=== PATIENT | female | born 1975 | race American Indian/Alaskan Native ===

== ENCOUNTER 2017-10-11 08:26 | Observation (INO) | payer BC ==
--- NOTE | 2017-10-05 11:32 | Anesthesia Consultation ---
Anesthesia Consult and Med Hx Date of service: 10/05/17 - Airway Anesthetic Teeth Evaluation: Good (got braces off in march. Perm retainer behind four front teeth) ROM Head & Neck: Adequate Mental/Hyoid Distance: Adequate Mallampati Class: Class I Intubation Access Assessment: Good - Pulmonary Exam CTA: Yes - Cardiac Exam Cardiac Exam: RRR - Pre-Operative Health Status ASA Pre-Surgery Classification: ASA2 Proposed Anesthetic Plan: General - Other Systems Hx Alcohol Use: Yes (occasional) - Additional Comments Anesthesia Medical History Comments: high cholest. no meds. migraines from stress. PONV after previous surgeries
[2017-10-05 12:15] LABS: Basophils # (Auto) 0.1 K/mm3 (0.0-0.1); Eosinophils # (Auto) 0.1 K/mm3 (0.0-0.4); Eosinophils % (Auto) 1.6 % (0.0-4.3); Hematocrit 39.7 % (30.3-42.9); Lymphocytes # (Auto) 1.8 K/mm3 (1.2-5.4); Lymphocytes % (Auto) 32.3 % (13.4-35.0); Mean Corpuscular HGB Conc 33 % (30-34); Mean Corpuscular Hemoglobin 29 pg (28-32); Mean Corpuscular Volume 90 fl (79-97); Monocytes # (Auto) 0.3 K/mm3 (0.0-0.8); Monocytes % (Auto) 5.7 % (0.0-7.3); Red Blood Count 4.42 M/mm3 (3.65-5.03); Red Cell Distribution Width 13.5 % (13.2-15.2)
[2017-10-05 12:28] LABS: Platelet Count 249 K/mm3 (140-440)
--- NOTE | 2017-10-09 17:21 | History and Physical Report ---
History of Present Illness Date of examination: 10/05/17 Date of admission: 10/11/17 Chief complaint: painful heavy periods History of present illness: Pt does c/o having heavy periods with passage of clots for the last 2 years. Denies any problems until this time. c/o low back pain with menses as welll.+ fatigue and cramping the week prior, during and after menes. Only 1 wk/month pain free. Pt has h/o endometriosis as well. Vital Signs: Patient Profile: 41 Years Old Female LMP: 07/10/2017 Height: 59 inches (149.86 cm) Weight: 188 pounds BMI: 37.97 BP sittin / 76 (left arm) Vitals Entered By: Jade Desai (July 29, 2017 9:17 AM) Menstrual History: LMP (date): 07/10/2017 LMP - Character: heavy Current Method of Contraception: BTL Date of Last Mammogram: 12/11/2015 Date of Last Pap Smear: 09/08/2015 Past History Term Births: 2 Living Children: 2 PHYSIOLOGIST History Uterine Surgery (not C/S): negative Operations: Tubal Ligation Hospitalizations: negative Anesthesia Complications: negative Abnormal PAP: negative Uterine Anomaly: negative MARY Exposure: negative Infertility: negative Infection History HIV Risk Eval: no Personal hx. of genital herpes: yes Hx of STD: HSV Active Medications (reviewed today): IBUPROFEN 800 MG ORAL TABLET (IBUPROFEN) 1 tab PO q8 hours prn pain Current Allergies (reviewed today): * PCN (Critical) Past Medical History: Reviewed history from 06/26/2009 and no changes required: Negative Past Medical History Past Surgical History: Reviewed history from 08/02/2012 and no changes required: Tubal Ligation Family History Summary: Reviewed history Last on 09/08/2015 and no changes required:08/09/2017 General Comments - FH: Family History Breast Cancer-mother (45yo) Social History: Reviewed history from 06/26/2009 and no changes required: Patient is Risk Factors: Smoked Tobacco Use: Never smoker Mammogram History: Date of Last Mammogram: 12/11/2015 PAP Smear History: Date of Last PAP Smear: 09/08/2015 Review of Systems Past History Past Medical History: no pertinent history Past Surgical History: other (BTL) PHYSIOLOGIST History: herpes Family/Genetic History: other (see hpi) Social history: no significant social history, - Obstetrical History : 2 Para: 2 Number of Living Children: 2 Medications and Allergies Allergies Allergy/AdvReac Type Severity Reaction Status Date / Time Penicillins Allergy Anaphylaxis Unverified 10/06/17 13:14 Home Medications Medication Instructions Recorded Confirmed Last Taken Type No Known Home Medications [No 10/06/17 10/06/17 Unknown History Reported Home Medications] Active Meds: Active Medications Clindamycin HCl (Cleocin 600 Mg/50 Ml) 600 mg in 50 mls @ 100 mls/hr IV PREOP RUSTAM PRN Reason: Protocol Stop: 10/11/17 23:59 Gentamicin Sulfate/Sodium Chloride (Garamycin/Ns 80 Mg/100 Ml) 100 mls @ 200 mls/hr IV PREOP RUSTAM Stop: 10/11/17 23:59 Review of Systems All systems: negative - Vital Signs Vital signs: Vital Signs Temp Pulse Resp BP 98.9 F 68 16 112/80 10/05/17 10:30 10/05/17 10:30 10/05/17 10:30 10/05/17 10:30 Temp Pulse Resp BP Pulse Ox 98.9 F 68 16 112/80 10/05/17 10:30 10/05/17 10:30 10/05/17 10:30 10/05/17 10:30 - Physical Exam Breasts: Positive: normal Cardiovascular: Normal S1, Normal S2 Lungs: Positive: Clear to auscultation, Normal air movement Abdomen: Positive: normal appearance, soft, normal bowel sounds. Negative: distention, tenderness, guarding Genitourinary (Female): Positive: normal external genitalia, normal perenium Uterus: Positive: normal size. Negative: tender Extremities: Positive: normal. Negative: tenderness, edema Results Result Diagrams: 10/05/17 10:40 All other labs normal. Assessment and Plan - Patient Problems (1) Menorrhagia Status: Acute Plan to address problem: -all risk, benefits and alternatives were d/w pt. pt desires definitive therapy in the form of LAVH with BS. Consents signed and placed on the chart. -to OR for above stated procedure (2) Fibroids Status: Acute (3) Dysmenorrhea Status: Acute
[~2017-10-11 08:26] MED LIST: CLEOCIN 600 MG/50 mL 600 MG/50 ML BAG IV SCH; GARAMYCIN 80 MG in NACL 0.9% 100 ML IV SCH; GARAMYCIN/NS 80 MG/100 ML 100 ML IV SCH
--- NOTE | 2017-10-11 09:11 | Anesthesia Day of Surgery ---
Anesthesia Day of Surgery - Day of Surgery Patient Examined: Yes Patient H&P Reviewed: Yes Patient is NPO: Yes
[2017-10-11] MEDS ORDERED: NACL 0.9% 100 ML ONE (09:15)
[2017-10-11] MEDS ORDERED: MARCAINE 0.5% 30 ML INFILTRATI ONE (09:15)
[2017-10-11] MEDS ORDERED: METHYLENE BLUE ONE (09:15)
[2017-10-11] MEDS ORDERED: MORPHINE IV PRN ×2 (09:16→14:12)
[2017-10-11] MEDS ORDERED: ZOFRAN IV PRN ×2 (09:16→14:12)
[2017-10-11] MEDS ORDERED: Vasostrict ONE (09:16)
[2017-10-11] MEDS ORDERED: PERCOCET 5/325 PO PRN (09:16)
[2017-10-11] MEDS ORDERED: DIPRIVAN 10 MG/ML IV ONE (09:55)
[2017-10-11] MEDS ORDERED: SUBLIMAZE ONE (09:55)
[2017-10-11] MEDS ORDERED: XYLOCAINE MPF 2% ONE (09:59)
[2017-10-11] MEDS ORDERED: LACTATED RINGERS 1,000 ML IV SCH (10:00)
[2017-10-11] MEDS ORDERED: VERSED IV NR (10:00)
[2017-10-11] MEDS ORDERED: NEURONTIN PO NR (10:00)
[2017-10-11] MEDS ORDERED: PEPCID PO NR (10:00)
[2017-10-11] MEDS ORDERED: ZEMURON IV ONE (10:24)
[2017-10-11] MEDS ORDERED: GARAMYCIN/NS 80 MG/100 ML 100 ML IV SCH (10:30)
[2017-10-11] MEDS ORDERED: NACL 0.9% IR ONE ×2 (11:34→11:36)
[2017-10-11] MEDS ORDERED: MARCAINE 0.5% INFILTRATI ONE (11:35)
[2017-10-11] MEDS ORDERED: NACL 0.9% IV ONE (11:35)
[2017-10-11] MEDS ORDERED: Vasostrict IM ONE (11:35)
[2017-10-11] MEDS ORDERED: ePHEDrine SULFATE ONE (11:54)
[2017-10-11] MEDS ORDERED: DILAUDID ONE (12:47)
[2017-10-11] MEDS ORDERED: NEOSTIGMINE ONE (12:55)
[2017-10-11] MEDS ORDERED: ROBINUL ONE (12:55)
[2017-10-11] MEDS ORDERED: DECADRON ONE (12:55)
[2017-10-11] MEDS ORDERED: ZOFRAN ONE (12:55)
--- NOTE | 2017-10-11 13:07 | Operative Report ---
Operative Report Operative Report: Date of procedure: 10/11/2017 Pre-operative diagnosis: Menorrhagia Dysmenorrhea Uterine fibroids Post-operative diagnosis: Same Procedure name(s): Laparoscopic assisted vaginal hysterectomy Surgeon: Tanya Walsh MD Supervisor Photocomposition: Dr. Joe Anesthesia: Gen. endotracheal anesthesia EBL: 100 mL Urine output: 200 mL of clear urine out at end of procedure Fluids: 1250 mL Findings: Grossly normal fallopian tubes and ovaries bilaterally Evidence of bilateral tubal ligation with Filshie clips in place Uterine myoma approximately 2 cm the anterior fundal portion of the uterus on the on the left side Indications: Patient with long history of menorrhagia and dysmenorrhea desired definitive therapy. Patient was diagnosed with uterine fibroids. Patient desired to have hysterectomy. All risks benefits and alternatives were discussed with the patient. Patient was consented for above stated procedures. Procedure: Patient was taken to the operating room where she was placed under general endotracheal anesthesia. She was then prepped and draped in sterile fashion. It was at this point that the small [employer] uterine manipulator was placed inside of the uterus after the uterus was sounded to approximately 8 cm. Sherwood catheter was also placed at this time. Attention was then turned to the umbilicus in which a supraumbilical incision was made. Under direct visualization the 5 mm trocar was placed inside the peritoneum the peritoneum was then insufflated. As at this point that the laparoscopic portion of the procedure was performed. 2 lateral 5 mm ports were also placed under direct visualization. Using the tripolar instrument the upper pedicles were cauterized and transected to the including round ligament with excellent hemostasis noted bilaterally. Attention was then turned vaginally. A weighted speculum was placed into the vagina and the cervix was grasped with a single-tooth tenaculum 2. The cervix was then injected circumferentially with Pitressin. The cervix was then circumferentially incised with the scalpel and the bladder dissected off of the pubovesical cervical fascia anteriorly with a sponge stick and Metzenbaum scissors. The same procedure was performed posteriorly and the posterior cul-de-sac was entered into sharply without difficulty. At this point a Gabriella Clamp was placed over the uterosacral ligaments on either side. These were then transected and suture ligated with 0 Vicryl. Hemostasis was assured. The cardinal ligaments were then clamped on both sides transected and suture ligated in similar fashion. The uterine arteries were then serially clamped with Gabriella clamps transected and suture ligated on both sides. Excellent hemostasis was visualized. After it was clear that the uterus had been completely from all pedicles the uterus was removed vaginally intact with cervix intact. The vaginal cuff angles were closed with figure of 8 stitches of 0 Vicryl on both sides. The peritoneum was incorporated in the stitching of the vaginal cuff. A series of interrupted figure of 8 sutures using 0 Vicryl were used to close the entire vaginal cuff. Excellent hemostasis was noted. The vagina was then irrigated copiously. Attention was then turned laparoscopically at which time Cherise was placed along the vaginal cuff laparoscopically. Again all pedicles were noted to be hemostatic. The ureters were identified bilaterally with peristalsis noted bilaterally. All instruments were then removed from the abdomen and the vagina. All gas was released from the abdomen. The abdominal incisions were closed using 4-0 Monocryl. All of the abdominal incisions were injected with Marcaine without epi. Patient tolerated the procedure well sponge lap and needle counts were all correct 3 the patient was taken to the recovery room awake and in stable condition.
[2017-10-11] MEDS ORDERED: NORCO 5/325 PO PRN (14:12)
[2017-10-11] MEDS ORDERED: TORADOL ONE (14:30)
[2017-10-11] MEDS: TORADOL IV SCH ×2 (14:30→22:55)
[2017-10-11] MEDS: D5LR 1,000 ML IV SCH (16:16)
[2017-10-11] MEDS ORDERED: CLEOCIN 600 MG/50 mL 600 MG/50 ML BAG IV SCH (19:00)
[2017-10-11] MEDS: GARAMYCIN/NS 80 MG/100 ML 100 ML IV SCH (21:40)
[2017-10-12] MEDS: D5LR 1,000 ML IV SCH ×3 (00:15→14:28)
--- NOTE | 2017-10-12 01:19 | Event Note ---
Date: 10/12/17 Called d/t low bps. Pt baseline is one teens over 80s. Pt vitals and uop are otherwise normal. No signs of bleeding being reported. Will give fluid bolus and revaluated of bp still low also will hold IV morphine at this time.
[2017-10-12] MEDS ORDERED: MOTRIN PO PRN (01:21)
[2017-10-12 05:51] LABS: Hematocrit 33.3 % (30.3-42.9); Hemoglobin 11.5 gm/dl (10.1-14.3)
[2017-10-12] MEDS: GARAMYCIN/NS 80 MG/100 ML 100 ML IV SCH (05:59)
[2017-10-12] MEDS: TORADOL IV SCH ×3 (06:01→15:40)
--- NOTE | 2017-10-12 08:54 | Progress Note ---
Assessment and Plan - Patient Problems (1) Menorrhagia Current Visit: Yes Status: Acute (2) Fibroids Current Visit: Yes Status: Acute (3) Dysmenorrhea Current Visit: Yes Status: Acute (4) S/P laparoscopic assisted vaginal hysterectomy (LAVH) Current Visit: Yes Status: Acute Plan to address problem: -routine post op care -sharma removed but still no spontaneous void. Will con't to monitor. encouraged ambulation -d/c home this pt if voiding normally and able to tolerate a regular diet. Subjective - Subjective Date of service: 10/12/17 Principal diagnosis: POD#1 s/p LAVH with BS Interval history: Pt doing well this am requesting regular diet. States +flattus. Pt has ambulated w/o assistance and denies dizziness, chest pain or sob. I d/w that her bp baseline is low and that her limted po intake combined with the iv narcotics contributed to it being lower as she shows no s/sx of bleeding.Pt expressed understanding. Details of sx d/w and questions were addressed and answered. Patient reports: appetite normal, pain well controlled, flatus, no dizzy ambulation Objective - Vital Signs Latest vital signs: Vital Signs Temp Pulse Resp BP BP Pulse Ox 10/12/17 06:36 90/54 10/12/17 06:01 20 10/12/17 04:50 98.5 F 77 20 83/45 97 10/12/17 02:15 98.9 F 82 18 100/52 10/12/17 00:51 89/48 10/12/17 00:05 99.1 F 79 20 87/43 97 10/11/17 22:55 20 10/11/17 20:32 99.1 F 73 20 104/50 100 10/11/17 16:33 66 98 10/11/17 16:26 70 99 10/11/17 16:00 98.2 F 72 20 90/53 100 10/11/17 15:35 97.6 F 71 20 98/62 99 10/11/17 15:00 97.2 F L 65 20 106/60 10 L 10/11/17 14:45 59 L 16 105/65 99 10/11/17 14:30 70 16 113/65 99 10/11/17 14:24 16 10/11/17 14:05 20 10/11/17 14:00 62 20 118/61 99 10/11/17 13:45 66 20 112/64 99 10/11/17 13:30 65 22 122/55 100 10/11/17 13:25 72 22 115/63 100 10/11/17 13:20 78 22 118/71 100 10/11/17 13:15 79 22 121/64 100 10/11/17 13:10 98.7 F 101 H 2 L 138/90 100 10/11/17 09:20 97.9 F 68 20 114/67 100 10/11/17 08:50 97.9 F 68 20 114/67 100 Intake and Output 10/11/17 10/12/17 10/12/17 22:59 06:59 14:59 Intake Total 100 2365.834 Output Total 620 800 Balance -520 1565.834 Intake: IV 100 1645.834 D5lr 1,000 ml @ 125 mls/ 1645.834 hr IV DIRECT RUSTAM Rx#: [id number] Garamycin/Ns 80 mg/100 ml 100 100 ml @ 200 mls/hr IV Q8H RUSTAM Rx#:[id number] Oral 720 Output: Urine 620 800 Indwelling Catheter 500 800 Other: Total, Intake Amount 720 Total, Output Amount 500 800 Voiding Method Indwelling Catheter Indwelling Catheter # Bowel Movements 0 - Exam Cardiovascular: Present: Regular rate, Normal S1, Normal S2 Lungs: Present: Clear to auscultation, Normal air movement Abdomen: Present: normal appearance, soft, normal bowel sounds. Absent: distention, tenderness, guarding Uterus: Present: other (abscent) Deep Tendon Reflex Grade: Normal +2 Incision: Present: normal, dry, intact (open to air. no bleeding)
--- NOTE | 2017-10-12 14:31 | Event Note ---
Date: 10/12/17 Pt doing well with stable vitals with exception of bp being low. bp checked with regular cuff closer to pt baseline of 100s/60s in my office. Pt has no sx no and desires d/c home. s/p regular diet and spontaneous void. Will d/c home today with f/u in one week for post op visit.
[2017-10-12 15:26] VITALS: BP 99/60
--- NOTE | 2017-10-12 15:28 | Discharge Summary ---
Providers - Providers Date of Admission: 10/11/17 14:12 Date of discharge: 10/12/17 Attending physician: JANET GILBERT Primary care physician: VICTORIANO LEDEZMA Hospitalization Reason for admission: other (LAVH WITH BS) Procedure: other (LAVH WITH BS) Procedure details: SEE OP NOTE Incision: normal, dry, intact Hospital course: PT ADMITTED FOR ABOVE STATED PROCEDURE. PT POST OP COURSE COMPLICATED BY HYPOTENSION THAT WAS STABLE WITHOUT ANY SIGNS OF BLEEDING OR INFECTION. PT HAS KNOW HISTORY OF LOW BASELINE BP OF 100/60S IN THE OFFICE. PT D/C HOME TO CLOSELY MONITOR BP AND CALL PROVIDER FOR ANY CHANGES IN SYMPTOMS OR LOWER THAN THE BASELINE HERE IN THE HOSPITAL AND IN THE OFFICE. Condition at discharge: Good Disposition: DC-01 TO HOME OR SELFCARE - Discharge Diagnoses (1) Menorrhagia Status: Acute (2) Fibroids Status: Acute (3) Dysmenorrhea Status: Acute (4) S/P laparoscopic assisted vaginal hysterectomy (LAVH) Status: Acute Plan - Discharge Medications Prescriptions: Ibuprofen 800 mg PO Q6HR #30 tablet oxyCODONE /ACETAMINOPHEN [Percocet 5/325] 1 tab PO Q4HR #30 tab - Provider Discharge Summary Additional instructions: [] Smoking cessation referral if applicable(refer to patient education folder for contact #) [] Refer to [facility] Booklet Call your doctor immediately for: * Fever > 100.5 * Heavy vaginal bleeding ( >1 pad per hour) * Severe persistent headache * Shortness of breath * Reddened, hot, painful area to leg or breast * Drainage or odor from incision. * Keep incision clean and dry at all times and follow doctor's instructions regarding bathing/showering - Follow up plan Follow up: VICTORIANO LEDEZMA MD [Primary Care Provider] - 7 Days JANET GILBERT MD [Staff Physician] - 7 Days
== END 2017-10-12 18:20 | disposition home or self-care (01) ==
LOC: OR 08:26 → OB 14:12
PROVIDERS: ADMIT Obstetrics & Gynecology; ATTEND Obstetrics & Gynecology
DX: N92.0 Excessive and frequent menstruation with regular cycle (principal); D25.9 Leiomyoma of uterus, unspecified; N94.6 Dysmenorrhea, unspecified; Z90.710 Acquired absence of both cervix and uterus
CPT/HCPCS: 36415; 58550; 84703; 85014; 85018; 85025; 86850; 86900; 86901; 88307; 96365; 96367; 96375; 96376; A4217; G0378; J1100; J1170; J1580; J1885; J2250; J2270; J2405; J2704; J2710; J3010; J7120; J7121; 88302; Q9968

== ENCOUNTER 2019-01-15 07:24 | Outpatient (CLI) | payer BC ==
--- NOTE | 2019-01-15 08:52 | Mammography Report ---
BILATERAL DIGITAL SCREENING MAMMOGRAM with CAD: 01/15/19 07:24:00 CLINICAL: Routine screening. COMPARISON: 12/11/15 and 12/06/14 FINDINGS: There are bilateral scattered areas of fibroglandular density.No mass, architectural distortion or suspicious calcifications. IMPRESSION: No mammographic evidence of malignancy. BI-RADS CATEGORY: 1 -- Negative RECOMMENDATION: Routine mammographic screening in one year. COMMENT: Patient follow-up letters are generated by our [employer] application.
== END 2019-01-15 07:25 | disposition home or self-care (01) ==
LOC: MAMMO 07:24
PROVIDERS: ATTEND Obstetrics & Gynecology
DX: Z12.31 Encounter for screening mammogram for malignant neoplasm of breast (principal); E78.00 Pure hypercholesterolemia, unspecified; Z90.710 Acquired absence of both cervix and uterus
CPT/HCPCS: 77067

== ENCOUNTER 2020-12-15 07:05 | Outpatient (CLI) | payer BC ==
--- NOTE | 2020-12-15 08:48 | Mammography Report ---
DIGITAL SCREENING MAMMOGRAM WITH CAD, 12/15/2020 CLINICAL INFORMATION / INDICATION: Routine screening mammography. ROUTINE TECHNIQUE: Digital bilateral 2D mammography was obtained in the craniocaudal and mediolateral obliqu e projections. This examination was interpreted with the benefit of Computer-Aided Detection analysis . COMPARISON: Prior mammograms 01/15/2019 and 12/11/2015 FINDINGS: Breast Density: There are scattered areas of fibroglandular density. No dominant mass, suspicious calcifications, or architectural distortion in either breast. There has been no significant change compared with the prior examinations. IMPRESSION: No mammographic evidence of malignancy. Follow up recommendation: Routine yearly BI-RADS Category 1: Negative. A "normal" or negative report should not discourage follow up or biopsy of a clinically significant f inding. A written summary of these findings will be mailed to the patient. The patient will be entered into a mammography reporting system which will generate a reminder letter for the patient's next appointmen t at the appropriate interval. The [employer] recommends yearly mammograms starting at age 40 and continuing as l gay as a woman is in good health. Breast MRI is recommended for women with an approximate 20-25% or greater lifetime risk of breast cancer, including women with a strong family history of breast or ova mary cancer or who have been treated for Hodgkin's disease. Signer Name: Hemalatha Aguilar MD Signed: 12/15/2020 8:43 AM Workstation Name: [id number]
== END 2020-12-15 07:06 | disposition home or self-care (01) ==
LOC: MAMMO 07:05
PROVIDERS: ATTEND Obstetrics & Gynecology
DX: Z12.31 Encounter for screening mammogram for malignant neoplasm of breast (principal)
CPT/HCPCS: 77067